=== PATIENT | female | born 1960 | race Caucasian/White ===

== ENCOUNTER 2016-09-30 08:08 | Day surgery (SDC) | payer OTHER ==
[~2016-09-30 08:08] MED LIST: AMBIEN5 M1 PO; ASPIR 8181 M1 PO; KLONOPIN0.5 M1 PO; ZOLOFT50 M1 PO
[2016-10-28] MEDS ORDERED: NORCO 5-325 TA1 EACH PO (15:46)
== END 2016-09-30 13:50 ==
LOC: SHSB 08:08 → ORW 10:26 → PACU 11:14 → SHSB 11:50
PROC: 0HB5XZZ Excision of Chest Skin, External Approach (ICD-10-PCS; principal; 2016-09-30)
PROC: 0HR5XK3 Replacement of Chest Skin with Nonautologous Tissue Substitute, Full Thickness, External Approach (ICD-10-PCS; 2016-09-30)
DX: L90.5 Scar conditions and fibrosis of skin (principal); L08.89 Other specified local infections of the skin and subcutaneous tissue; F41.9 Anxiety disorder, unspecified; F32.9 Major depressive disorder, single episode, unspecified; G47.00 Insomnia, unspecified; Z79.82 Long term (current) use of aspirin; Z79.899 Other long term (current) drug therapy; Z98.890 Other specified postprocedural states
CPT/HCPCS: J0171; J0690; J1580; J3010; J3370; Q4104